=== PATIENT | female | born 1985 | race Caucasian/White ===

== ENCOUNTER 2020-08-02 07:18 | Outpatient (CLI) | payer BC | END 2020-08-02 23:59 | disposition home or self-care (01) | LOC: CFH 07:18 | PROVIDERS: ATTEND Obstetrics & Gynecology Maternal & Fetal Medicine | DX: I86.8 Varicose veins of other specified sites (principal) ==

== ENCOUNTER → 2020-08-19 | Outpatient (CLI) | payer BC | END | disposition home or self-care (01) | LOC: CFH 13:41 | PROVIDERS: ATTEND Obstetrics & Gynecology Maternal & Fetal Medicine | DX: I80.01 Phlebitis and thrombophlebitis of superficial vessels of right lower extremity (principal); M25.561 Pain in right knee ==

== ENCOUNTER 2020-08-30 12:04 | Outpatient (CLI) | payer BC | END 2020-08-30 23:59 | disposition home or self-care (01) | LOC: CVU 12:04 | PROVIDERS: ATTEND Obstetrics & Gynecology Maternal & Fetal Medicine | DX: I83.91 Asymptomatic varicose veins of right lower extremity (principal); I82.401 Acute embolism and thrombosis of unspecified deep veins of right lower extremity | CPT/HCPCS: 93971 ==